=== PATIENT | female | born 1970 | race Caucasian/White ===

== ENCOUNTER 2016-08-06 10:54 | Emergency (ER) | payer OTHER ==
[~2016-08-06] VITALS: Ht 157.5 cm; Wt 72.6 kg
[2016-08-06] MEDS ORDERED: SYNTHROID100 MCG PO (11:23)
[2016-08-06] MEDS ORDERED: CYTOMEL25 MC1 PO (11:23)
[2016-08-06] MEDS ORDERED: BYSTOLIC10 M1 PO (11:24)
[2016-08-06] MEDS ORDERED: AMITRIPTYLINE H50 M2 PO (11:24)
[2016-08-06] MEDS ORDERED: FAMOTIDINE40 M1 PO (11:24)
[2016-08-06] MEDS ORDERED: VERAPAMIL ER180 M1 PO (11:25)
--- NOTE | 2016-08-06 11:36 | ED GENERAL ADULT ---
History of Present Illness General Chief Complaint: General Adult Stated Complaint: WEAKNESS Source: patient Exam Limitations: no limitations Allergies Coded Allergies: NO KNOWN ALLERGIES (02/22/12) Triage Note: PT TO ED WITH C/O "HEADACHE ALL WEEK, DIDN'T GO TO WORK, TODAY FEELING SHAKY". TEMP 99.4. STARTED STARLERA 2 DOSES SO FAR, ALSO C/O "SOMETHING IS GOING ON WITH MY TONGUE, FEELS BIG". SPEAKING IN FULL SENTENCES, O2 99% Triage Nurses Notes Reviewed? yes : No Patient currently breastfeeds: No HPI: This patient is a 45-year-old female with past medical history including psoriatic arthritis and psoriasis as well as high blood pressure who presented to the emergency department today for evaluation of multiple complaints. The patient reported that on Wednesday she began having an 8 out of 10, right-sided occipital headache which lasted the entire day and was unresponsive to her usual migraine medication, Tylenol, and ibuprofen. She reported that she woke up the next morning and it was gone; however, she feels that it is, "creeping back," today. The patient reported that it feels different than her usual migraines. She reported that today she has been feeling shaky and, "out of it." She reported that she was having some blurry vision prior to arrival in the emergency department. Not currently. The patient denied any fevers, chills, chest pain, difficulty breathing, jaw pain, arm pain, numbness or tingling in her extremities, abdominal pain, nausea, vomiting, or any other associated symptoms. 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 The patient reported that she was started on STARLARA injections in June. She had her first injection in June and her second injection at the beginning of July. She denied having any complications after these injections. She reported that today she feels like her tongue is big. She has not contacted her primary care physician about any of these symptoms. (MANOLO BERRY,MAEVE) Vital Signs & Intake/Output Vital Signs & Intake/Output Vital Signs Date Time Temp Pulse Resp B/P Pulse O2 O2 Flow FiO2 Ox Delivery Rate 08/06 1438 98.8 82 20 121/76 98 Room Air Room Air 08/06 1308 98.8 85 18 132/91 95 Room Air ED Intake and Output 08/07 0000 08/06 1200 Intake Total 1000 Output Total Balance 1000 Intake, IV 1000 Patient 160 lb Weight Reconcile Medications Amitriptyline HCl 50 MG TABLET 1 TAB PO QPM SLEEP (Reported) Butalb/Acetaminophen/Caffeine (Fioricet 50-300-40 MG Capsule) 50 MG-300 MG-40 MG CAPSULE 1 TAB PO Q8 PRN HEADACHE Famotidine 40 MG TABLET 1 TAB PO BID GI (Reported) Levothyroxine Sodium (Synthroid) 100 MCG TABLET 1 TAB PO DAILY AC THYROID ( Reported) Liothyronine Sodium (Cytomel) 25 MCG TABLET 1 TAB PO DAILY AC THYROID ( Reported) Nebivolol HCl (Bystolic) 10 MG TABLET 1 TAB PO DAILY HEART (Reported) Ondansetron (Zofran Odt) 4 MG TAB.RAPDIS 1 TAB SL TID PRN NAUSEA Verapamil HCl (Verapamil ER) 180 MG TABLET.ER 1 TAB PO DAILY HEART (Reported) (PHIL PETERS,SHARRI Gannon) Past History Travel History Traveled to [place] past 21 day No Medical History Any Pertinent Medical History? see below for history Neurological: migraine EENT: NONE Cardiovascular: hypertension Respiratory: NONE Gastrointestinal: GERD Hepatic: NONE Renal: NONE Musculoskeletal: NONE Psychiatric: anxiety Endocrine: hypothyroidism Blood Disorders: NONE Cancer(s): NONE KILN PACKER/Reproductive: NONE Surgical History Surgical History: non-contributory Psychosocial History What is your primary language Yemeni Tobacco Use: Quit >30 days ago ETOH Use: occasional use Illicit Drug Use: denies illicit drug use Family History Hx Contributory? No (MAEVE FRENCH PA-C) Review of Systems Review of Systems Constitutional: Reports: see HPI. EENTM: Reports: see HPI. Respiratory: Reports: no symptoms. Cardiovascular: Reports: no symptoms. GI: Reports: no symptoms. Genitourinary: Reports: no symptoms. Musculoskeletal: Reports: no symptoms. Skin: Reports: no symptoms. Neurological/Psychological: Reports: see HPI. All Other Systems: Reviewed and Negative (MAEVE FRENCH PA-C) Physical Exam Physical Exam General Appearance: well developed/nourished, no apparent distress, alert, awake Comments: Well-developed well-nourished person who appears anxious HEENT: Normal EENT exam, head normocephalic/atraumatic, moist mucous membranes PERRLA bilaterally. No pharyngeal injection. No tonsillar exudates or oropharyngeal lesions or edema. No edema of the tongue Neck: Supple, no lymphadenopathy Back: Normal gait Cardiovascular: Regular rate and rhythm with no murmurs, rubs, or gallops. No JVD or carotid bruits Respiratory: Chest nontender. No respiratory distress. Breath sounds clear to auscultation bilaterally with no wheezes, rales, or rhonchi Extremity: Normal and equal pulses. Capillary refill less than 2 seconds Neuro: Alert oriented x3, cranial nerves II through XII grossly intact. Skin: No appreciable rash on exposed skin, skin is warm and dry. Psych: Mood and affect is normal Core Measures ACS in differential dx? No CVA/TIA Diagnosis: No Severe Sepsis Present: No Septic Shock Present: No (MANOLO BRERY,MAEVE) Progress Differential Diagnoses I considered the following diagnoses in my evaluation of the patient: [Viral syndrome, influenza, anxiety, ACS, migraine headache, medication reaction, angioedema] Diagnostic Imaging: Viewed by Me: CT Scan. Discussed w/RAD: CT Scan. Radiology Impression: PATIENT: JOSEPH SOLIS PRESENT AGE: 45 PATIENT ACCOUNT NO: [id number] : 71 LOCATION: [facility] ORDERING PHYSICIAN: MAEVE FRENCH PA-C SERVICE DATE: 08/06/16 EXAM TYPE: CAT - CT HEAD WO IV CONTRAST EXAMINATION: CT HEAD WITHOUT CONTRAST CLINICAL INFORMATION: Headache. Evaluate for mass or intracranial hemorrhage. COMPARISON: None TECHNIQUE: Contiguous axial imaging was performed from the skull base to vertex without intravenous administration of contrast. DLP: 600.71 mGy-cm FINDINGS: The brain parenchyma has normal attenuation with well-preserved sosa- white matter differentiation. No evidence of cerebral edema, hemorrhage, focal extra-axial fluid collection, mass effect or midline shift. The ventricles have normal size and configuration. No acute findings within the posterior fossa. The calvarium is intact and the mastoid air cells and middle ear cavities are clear. The paranasal sinuses are well aerated with exception of a mucus retention cyst within the left sphenoid sinus. There are no air-fluid levels within the paranasal sinuses. The examined orbits, globes and temporomandibular joints are unremarkable. IMPRESSION: 1. No acute intracranial pathology. 2. Mucous retention cyst is present within the left sphenoid sinus. DICTATED BY: TAMMY HERNANDEZ MD DATE/TIME DICTATED:08/06/161405 DYE MACHINE TENDER:RAD.BAUTISTA DATE/ TIME TRANSCRIBED:08/06/16 / 1406 CONFIDENTIAL, DO NOT COPY WITHOUT APPROPRIATE AUTHORIZATION. <Electronically signed in Other Vendor System> SIGNED BY: TAMMY HERNANDEZ MD 08/06/16 1414 Initial ED EKG: none (MANOLO BERRY,MAEVE) Plan of Care: Orders Procedure Date/time Status Add-on Test (ER Only) 08/06 1306 Active HUMAN BETA HCG SCREEN 08/06 121 Complete Laboratory Tests 08/06/16 1217: Anion Gap 12, Estimated GFR > 60, BUN/Creatinine Ratio 22.0, Glucose 82, Calcium 9.6, Total Bilirubin 0.4, AST 81 H, ALT 97 H, Alkaline Phosphatase 79, Total Protein 7.6, Albumin 4.4, Globulin 3.2, Albumin/Globulin Ratio 1.4, Total Beta HCG NEGATIVE 08/06/16 1150: CBC w Diff NO MAN DIFF REQ, RBC 4.37, MCV 93.5, MCH 32.1 H, RDW 14.0, MPV 7.3 L, Gran % 80.7 H, Lymphocytes % 14.1 L, Monocytes % 3.9, Eosinophils % 0.4, Basophils % 0.9, Absolute Granulocytes 5.8, Absolute Lymphocytes 1.0 L, Absolute Monocytes 0.3, Absolute Eosinophils 0, Absolute Basophils 0.1, PUBS MCHC 34.4 Microbiology 08/06 1150 NASOPHARYN: Influenza Virus A & B Rapid Smear - COMP Departure Departure Disposition: HOME OR SELF CARE Condition: Stable Clinical Impression Primary Impression: Viral syndrome Secondary Impressions: Headache Qualifiers: Headache type: unspecified Headache chronicity pattern: unspecified pattern Intractability: not intractable Qualified Code: R51 - Headache Referrals: PHILLIP PETERS,LORENA Zepeda (PCP/Family) Additional Instructions: Take medication for nausea as prescribed. Take medication for headache as prescribed. Please follow-up with your primary care physician. Rest and be sure to stay hydrated. Return for any worsening symptoms or concerns. Departure Forms: Customer Survey General Discharge Information Prescriptions: Current Visit Scripts Ondansetron (Zofran Odt) 1 TAB SL TID PRN NAUSEA #10 TAB Butalb/Acetaminophen/Caffeine (Fioricet 50-300-40 MG Capsule) 1 TAB PO Q8 PRN HEADACHE #5 TAB (MAEVE FRENCH PA-C) PA/[employer]ATE [employer]ER Co-Sign Statement Statement: ED Attending supervision documentation- [] I saw and evaluated the patient. I have also reviewed all the pertinent lab results and diagnostic results. I agree with the findings and the plan of care as documented in the PA's/PROBATE LAWYER's documentation. [X] I have reviewed the ED Record and agree with the PA's/PROBATE LAW[employer]ER's documentation. [] Additions or exceptions (if any) to the PAs/PROBATE LAWYER's note and plan are summarized below: [] (PHIL PETERS,SHARRI Gannon) Critical Care Note Critical Care Note Critical Care Time: non-applicable (MANOLO BERRY,MAEVE)
[2016-08-06 12:11] LABS: ABSOLUTE BASOPHIL COUNT 0.1 /CUMM (0.0-0.2); ABSOLUTE EOSINOPHIL COUNT 0 /CUMM (0.0-0.7); ABSOLUTE GRANULOCYTE CT 5.8 /CUMM (1.4-6.5); ABSOLUTE MONOCYTE COUNT 0.3 /CUMM (0.10-0.60); BASOPHIL % 0.9 % (0.0-2.0); EOSINOPHIL % 0.4 % (0-5); GRANULOCYTE % 80.7 % (42.2-75.2); HEMATOCRIT 40.8 % (37-47); MEAN CORPUSCULAR HGB 32.1 PG (27.0-31.0); MEAN CORPUSCULAR HGB CONC 34.4 G/DL (33.0-37.0); MEAN CORPUSCULAR VOLUME 93.5 FL (81.0-99.0); MEAN PLATELET VOLUME 7.3 FL (7.4-10.4); PLATELET COUNT 315 /CUMM (130-400); RED BLOOD CELL CT 4.37 /CUMM (4.20-5.40); WHITE BLOOD CELL COUNT 7.2 /CUMM (4.8-10.8)
--- NOTE | 2016-08-06 14:14 | CT SCAN REPORT ---
EXAMINATION: CT HEAD WITHOUT CONTRAST CLINICAL INFORMATION: Headache. Evaluate for mass or intracranial hemorrhage. COMPARISON: None TECHNIQUE: Contiguous axial imaging was performed from the skull base to vertex without intravenous administration of contrast. DLP: 600.71 mGy-cm FINDINGS: The brain parenchyma has normal attenuation with well-preserved sosa-white matter differentiation. No evidence of cerebral edema, hemorrhage, focal extra-axial fluid collection, mass effect or midline shift. The ventricles have normal size and configuration. No acute findings within the posterior fossa. The calvarium is intact and the mastoid air cells and middle ear cavities are clear. The paranasal sinuses are well aerated with exception of a mucus retention cyst within the left sphenoid sinus. There are no air-fluid levels within the paranasal sinuses. The examined orbits, globes and temporomandibular joints are unremarkable. IMPRESSION: 1. No acute intracranial pathology. 2. Mucous retention cyst is present within the left sphenoid sinus.
[2016-08-06] MEDS ORDERED: ZOFRAN ODT4 M1 SL (14:27)
[2016-08-06] MEDS ORDERED: FIORICET 50-301 EACH PO (14:27)
[2016-08-06 14:38] VITALS: BP 121/76
== END 2016-08-06 14:40 ==
LOC: ERH 10:54
PROVIDERS: Physician Assistant
DX: B34.9 Viral infection, unspecified (principal); R51 Headache; I10 Essential (primary) hypertension; Z87.891 Personal history of nicotine dependence
CPT/HCPCS: 87804; 87804-59; 96361; 96374; 96375; J1200; J1885; J2405